=== PATIENT | female | born 1985 | race Caucasian/White ===

== ENCOUNTER 2020-10-21 08:54 | Inpatient (IN) ==
[2020-10-21] MEDS ORDERED: OXYTOCIN 30 UNITS/500 ML BAG IV PRN ×3 (09:25→20:36)
--- NOTE | 2020-10-21 09:46 | History & Physical Report ---
Date of Service October 21, 2020 Assessment & Plan (1) Post term over 40 weeks: (2) Supervision of elderly primigravida: (3) Obesity affecting : Admit, labs. will check cmp but does not seem still that gest htn dx met. pt says her bps can be labile so will get labs. plan pitocin now and then arom. pt agreeable and desires this. fhts categ 1. Admission and Anticipated Discharge Date Admission Date: October 21, 2020 History of Present Illness Chief Complaint: planned induction Primary Care Provider: Jennifer Little MD 35yo at 40+wks mariana presents to L&D for planned induction elective, although patient mentions some concern for her bps. Of note, pt does have some elevated bps noted in her record but never diagnosed with gestational hypertension. She desires induction today. Has nausea but thinks its due to nerves. No babcock, visual change or ruq pain. BP normal today and neg urine dip. PNC c/b 1. AMA 2. obesity, had efw at 36wks 65% aga PNL Rh pos, RI, GBS neg. OBH: G1 GYNH: nl paps no stds. Allergies Allergy/AdvReac Type Severity Reaction Status Date / Time No Known Allergies Allergy Verified 10/21/20 11:39 Home Medications Medication Instructions Recorded Confirmed Type prenat.vits,ayesha,xvo-pnub-kklea 1 tab PO DAILY 10/21/20 10/21/20 History [ Vitamin] Patient History Medical History Encounter for anatomic survey Surgical History H/O breast surgery Family History Father Diabetes Hypertension Mother Anemia Dyslipidemia Grandmother (Maternal) Acute leukemia Denies family history of Ovarian cancer Prostate cancer Myocardial infarction Breast cancer Colorectal cancer Social History Smoking Status: Never smoker Second Hand Exposure: No; Hx Alcohol Use: No Hx Substance Use: No Preferred Language: Nepalese Communication Ability: Effective Supervisor [employer] Vault Required: No Beliefs That Will Affect Care: None marital status: marital status details: Jarrell (35) [phone] Current Living Situation: Spouse Current Living Situation Comment: Lives with spouse, 2 dogs, 1 cat, spouse to change litter. current occupational status: employed current occupation: Direct production support engineer for [employer] Other Information That Helps Us Care for You: No Feels Safe at Home: Yes Safety Concerns: Feels Safe At This Time Childhood Exposure to Second-Hand Smoke: No Dental Care, Regularly: Yes Physical Activity Frequency: 3-4 Times per Week Seatbelt Use: always Sunscreen Use: Yes Assistive Devices: None Review of Systems no fever Physical Exam Constitutional: WD/WN, vitals as above Respiratory: normal respiratory effort, lungs clear to auscultation Cardiovascular: Rate/Rhythm: regular rate and regular rhythm Gastrointestinal (Abdomen): soft gravid nt EFW 7#13oz Musculoskeletal: no edema nontender calves Neurologic: grossly normal Psychiatric: A+Ox3, euthymic affect Genitourinary: OB Exam Abdomen: + vertex (by US) Manual OB Exam: + cervical dilation (3), + cervical effacement (75%) and + station high OB Exam Monitor Tracing: + external FHT monitor used (130 mod variability), + external uterine monitor used (irreg), + category I and + normal FHT variability Results & Data ([facility]) Vital Signs (Past 12 Hours) Vital Signs Pulse BP 10/21/20 09:15 80 138/81 Coding Level of Care Code None Diagnoses Post term over 40 weeks O48.0 Supervision of elderly primigravida O09.519 Obesity affecting O99.210
[2020-10-21 09:50] LABS: Hematocrit (blood only) 33.7 % (37-47); Hemoglobin 11.6 g/dL (12.0-16.0); Mean Corpuscular Hemoglobin 31.7 pg (25-34); Mean Corpuscular Hgb Conc 34.4 g/dL (32-36); Mean Corpuscular Volume 92.1 fL (80-100); Mean Platelet Volume 9.5 fL (7.4-10.4); Platelet Count 339 K/uL (130-400); RDW Standard Deviation 47.1 fL (36.4-46.3); Red Blood Count 3.66 M/uL (4.2-5.4); White Blood Count 11.69 K/uL (4.8-10.8)
[2020-10-21] MEDS: LACTATED RINGER'S 1,000 ML IV PRN ×3 (10:22→18:52)
[2020-10-21 10:28] LABS: Alanine Aminotransferase 16 U/L (12-78); Albumin Level 2.5 gm/dl (3.4-5.0); Aspartate Aminotransferase 12 U/L (15-37); BUN Creatinine Ratio 14.7 (10-20); Blood Urea Nitrogen 8 mg/dl (7-18); Calcium 8.8 mg/dl (8.5-10.1); Carbon Dioxide 21 mmol/L (21-32); Chloride 109 mmol/L (98-107); Est GFR (African American) 141.6; Est GFR (Non-African American) 122.2; Glucose 74 mg/dl (70-99); Potassium 3.8 mmol/L (3.5-5.1); Sodium 137 mmol/L (136-145)
[2020-10-21 10:29] LABS: Albumin Globulin Ratio 0.7 (0.9-2); Alkaline Phosphatase 156 U/L (45-117); Bilirubin,Total 0.9 mg/dl (0.2-1); Globulin 3.4 gm/dl (2.5-4.0); Total Protein 5.9 gm/dl (6.4-8.2)
--- NOTE | 2020-10-21 13:25 | Labor Progress Brief Note ---
Date of Service October 21, 2020 Subjective Reason For Note: Routine Evaluation pt not feeling ctx. pit at 9 Assessment & Plan (1) Post term over 40 weeks: (2) Supervision of elderly primigravida: (3) Obesity affecting : will see how arom helps labor pattern. fhts categ 1. discussed and reviewed mec stained fluid. Admission and Anticipated Discharge Date Admission Date: October 21, 2020 Physical Exam Constitutional: WD/WN, vitals as above Genitourinary: Manual OB Exam: + cervical dilation 4 cm, + cervical effacement 80%, + station -2 and + amniotic fluid (AROM) meconium (old??) OB Exam Monitor Tracing: + external FHT monitor used (140 mod variability), + external uterine monitor used (q3? not traced well), + category I and + normal FHT variability Results & Data ([facility]) Vital Signs (Past 12 Hours) Vital Signs Temp Pulse Resp BP 10/21/20 11:14 67 141/78 H 10/21/20 09:30 97.7 F 20 10/21/20 09:15 80 138/81 Coding Level of Care Code None Diagnoses Post term over 40 weeks O48.0 Supervision of elderly primigravida O09.519 Obesity affecting O99.210
[2020-10-21] MEDS ORDERED: fentaNYL citrate 100 MCG/2 ML VIAL ONE ×2 (14:13→16:47)
[2020-10-21] MEDS ORDERED: BUPIVACAINE 0.25% 30 ML VIAL ONE ×2 (14:13→16:47)
[2020-10-21] MEDS ORDERED: ePHEDrine sulfate 50 MG/ML AMP ONE (14:13)
[2020-10-21] MEDS ORDERED: SODIUM CHLORIDE 0.9% INJ 10 ML VIAL ONE (14:13)
[2020-10-21] MEDS ORDERED: fentaNYL 2MCG/ML ROPIVACAINE 1.25MG/ML 100 ML BAG EPI ONE (14:14)
--- NOTE | 2020-10-21 14:17 | Anesthesiology Consultation ---
Date of Service October 21, 2020 Assessment & Plan (1) Encounter for pre-operative examination: Chart Review Chart Review: Acceptable Risk for Labor Epidural Consults Requested none ASA ASA2 Proposed Anesthesia Anesthesia Type: Labor Epidural Risk / Benefits Reviewed With: PT / POA / Parent / Guardian, Accepts Plan and Informed Consent Obtained History Height/Weight Height: 5 ft 5 in Weight: 104.326 kg Allergies Allergy/AdvReac Type Severity Reaction Status Date / Time No Known Allergies Allergy Verified 10/21/20 11:39 Medications Home Medications Medication Instructions Recorded Confirmed Last Taken prenat.vits,ayesha,ore-jnse-wfcta 1 tab PO DAILY 10/21/20 10/21/20 10/14/20 21:00 [ Vitamin] Active Medications Generic Name Dose Route Start Last Admin Trade Name Freq PRN Reason Stop Dose Admin Lactated Ringer's 1,000 mls @ 125 mls/hr 10/21/20 09:25 10/21/20 10:22 Lr IV 10/23/20 09:24 125 mls/hr .Q8H PRN Administration L&D Protocol Protocol Oxytocin 30 units in 500 mls @ 11 mls/hr 10/21/20 09:27 10/21/20 14:04 Pitocin IV 10/23/20 09:26 0.66 units/hr .Q24H PRN 11 mls/hr Labor Induction/Augmentation Titration Protocol 0.66 UNITS/HR Past Medical History Medical History Encounter for anatomic survey Exercise / Class Metabolic Activity II 4-5 Yardwork/Stairs/Walk up hill Past Family History Family History Father Diabetes Hypertension Mother Anemia Dyslipidemia Grandmother (Maternal) Acute leukemia Denies family history of Ovarian cancer Prostate cancer Myocardial infarction Breast cancer Colorectal cancer Past Surgical History Surgical History H/O breast surgery Past Anesthesia History No Hx of Anesthesia Complications and No Family Hx of Anesthesia Complications History of PONV No Hx of PONV and No Hx of Motion Sickness Social History Smoking Status: Never smoker Hx Alcohol Use: No Hx Substance Use: No substance use type: does not use Physical Exam Vital Signs Last Vital Signs Temp 98.8 F 10/21/20 13:25 Pulse 69 10/21/20 13:25 Resp 20 10/21/20 13:25 BP 137/77 10/21/20 13:25 ENMT Mouth: no dentition abnormality Thyromental Distance: > or= 3.5 Finger Breadths Mallampati Class: II Neck normal visual inspection Respiratory normal respiratory effort Auscultation: lungs clear to auscultation bilaterally Cardiovascular Rate/Rhythm: regular rate and regular rhythm Testing Laboratory Results 10/21/20 09:31 10/21/20 09:35
[2020-10-21] MEDS ORDERED: NALOXONE HCL 1 MG in SODIUM CHLORIDE 0.9% 1000ML 1,000 ML IV PRN (14:18)
[2020-10-21] MEDS ORDERED: diphenhydrAMINE 50 MG/ML VIAL IV PRN (14:18)
[2020-10-21] MEDS ORDERED: ePHEDrine sulfate 50 MG/ML AMP IV PRN (14:18)
[2020-10-21] MEDS ORDERED: ONDANSETRON INJ 2 MG/ML 2 ML VIAL IV PRN (14:18)
[2020-10-21] MEDS ORDERED: NALOXONE HCL 0.4 MG/1 ML VIAL/CARP IV PRN (14:18)
[2020-10-21] MEDS: fentaNYL 2MCG/ML ROPIVACAINE 1.25MG/ML 100 ML BAG EPI PRN ×2 (14:44→16:26)
[2020-10-21] MEDS ORDERED: NURSING L&D Epidural Breakthrough Pain Update ONE (16:37)
--- NOTE | 2020-10-21 18:40 | Labor Progress Brief Note ---
Date of Service October 21, 2020 Subjective Reason For Note: Routine Evaluation pt pushing effectively Assessment & Plan (1) Post term over 40 weeks: (2) Obesity affecting : (3) Supervision of elderly primigravida: cont 2nd stage. fhts categ 1. Admission and Anticipated Discharge Date Admission Date: October 21, 2020 Physical Exam Constitutional: WD/WN, vitals as above Genitourinary: Manual OB Exam: + cervical dilation 10 cm, + cervical effacement 100% and + station + 2 OB Exam Monitor Tracing: + external FHT monitor used (130 mod variability), + external uterine monitor used (q2-3), + category I and + normal FHT variability Results & Data ([facility]) Vital Signs (Past 12 Hours) Vital Signs Temp Pulse Resp BP Pulse Ox 10/21/20 18:34 93 H 99 10/21/20 18:33 77 168/83 H 10/21/20 18:29 84 97 10/21/20 18:24 89 99 10/21/20 18:20 84 165/84 H 10/21/20 18:19 81 99 10/21/20 18:14 95 H 99 10/21/20 18:09 95 H 98 10/21/20 18:04 90 142/90 H 99 10/21/20 17:59 83 100 10/21/20 17:54 84 97 10/21/20 17:49 82 145/73 H 97 10/21/20 17:44 83 99 10/21/20 17:39 76 97 10/21/20 17:34 82 99 10/21/20 17:29 81 99 10/21/20 17:28 78 177/78 H 10/21/20 17:24 87 97 10/21/20 17:23 73 169/117 H 10/21/20 17:19 76 97 10/21/20 17:17 78 140/76 10/21/20 17:14 89 97 10/21/20 17:12 83 146/76 H 10/21/20 17:09 88 97 10/21/20 17:05 76 154/69 H 10/21/20 17:04 84 98 10/21/20 16:59 81 98 10/21/20 16:58 86 92 10/21/20 16:54 86 97 10/21/20 16:52 85 167/86 H 10/21/20 16:49 79 98 10/21/20 16:44 81 98 10/21/20 16:40 81 145/68 H 10/21/20 16:39 83 98 10/21/20 16:34 82 98 10/21/20 16:31 98.6 F 20 10/21/20 16:29 80 98 10/21/20 16:26 75 146/70 H 10/21/20 16:24 78 97 10/21/20 16:19 73 97 10/21/20 16:14 77 99 10/21/20 16:10 74 143/67 H 10/21/20 16:09 80 98 10/21/20 16:04 79 98 10/21/20 15:59 82 97 10/21/20 15:54 75 98 10/21/20 15:52 77 136/75 10/21/20 15:49 79 98 10/21/20 15:47 77 133/76 10/21/20 15:44 72 96 10/21/20 15:43 69 130/77 10/21/20 15:39 74 98 10/21/20 15:38 71 135/67 10/21/20 15:34 76 134/78 98 10/21/20 15:29 72 99 10/21/20 15:28 81 141/72 H 10/21/20 15:24 71 98 10/21/20 15:22 76 145/76 H 10/21/20 15:19 69 98 10/21/20 15:17 66 142/69 H 10/21/20 15:14 75 98 10/21/20 15:12 68 141/70 H 10/21/20 15:09 69 139/68 99 10/21/20 15:04 67 98 10/21/20 15:03 71 138/66 10/21/20 14:59 73 99 10/21/20 14:58 71 135/65 10/21/20 14:54 75 99 10/21/20 14:53 98.8 F 70 20 135/63 10/21/20 14:49 73 98 10/21/20 14:46 73 131/63 10/21/20 14:44 74 131/57 L 98 10/21/20 14:42 75 131/56 L 10/21/20 14:41 73 141/63 H 10/21/20 14:39 78 100 10/21/20 14:34 80 99 10/21/20 14:29 89 99 10/21/20 14:24 86 99 10/21/20 13:25 98.8 F 69 20 137/77 10/21/20 11:14 67 141/78 H 10/21/20 09:30 97.7 F 20 10/21/20 09:15 80 138/81 Coding Level of Care Code None Diagnoses Post term over 40 weeks O48.0 Obesity affecting O99.210 Supervision of elderly primigravida O09.519
[2020-10-21] MEDS ORDERED: miSOPROStoL 200 MCG TAB ONE (20:19)
[2020-10-21] MEDS ORDERED: LIDOCAINE HCL 1% 20 ML VIAL ONE (20:23)
[2020-10-21] MEDS ORDERED: oxyCODONE/ACETAMINOPHEN 5mg/325mg TAB PO PRN (20:36)
--- NOTE | 2020-10-21 20:40 | Delivery Summary ---
Vaginal Delivery Summary Date of Service October 21, 2020 Vaginal Delivery Summary and 2nd Degree LAC The patient dilated to complete and pushed to deliver a viable female infant Apgars 8 and 9 via over 2nd degree perineal laceration. Mouth and nose bulb suctioned at perineum. Loose nuchal x 1 reduced. Shoulders and body delivered with ease. Infant was vigorous and crying at . Cord clamped and infant to maternal abdomen where the cord was then doubly clamped and cut. Laceration repaired in usual fashion with 3-0 vicryl and additional bleeding site of laceration of left labia repaired with 3-0 vicryl after 1% local lidocaine anesthesia. Hemostasis adequate. Placenta delivered spontaneously and intact, three-vessel cord. Notable for calcifications. Hemostasis not achieved with dilute pitocin and uterine massage and drainage of the bladder for approximately 100 cc under sterile conditions, therefore cytotec 800mcg placed rectally. With further massage hemostasis became more adequate. Cervix and sulci intact. EBL 600 cc. Mother and baby stable recovery. [facility] Vaginal Delivery Charge Vaginal Delivery Codes: 48463 global code for the antepartum, delivery, and post- Delivery Type Details: and 2nd Degree LAC
[2020-10-21] MEDS ORDERED: OXYTOCIN 20 UNITS in LACTATED RINGER'S 1,000 ML IV SCH (20:45)
[2020-10-21] MEDS ORDERED: BENZOCAINE 20% AER SPR 82.5 GM CAN EXT PRN (20:50)
[2020-10-21] MEDS ORDERED: DIPHTHERIA/TETANUS/PERTUSSIS 0.5 ML SYR/VIAL IM ONE (20:50)
[2020-10-21] MEDS ORDERED: miSOPROStoL 200 MCG TAB PR ONE (20:50)
[2020-10-21] MEDS ORDERED: HYDROCORTISONE ACETATE 25 MG SUPP PR PRN (20:50)
[2020-10-21] MEDS ORDERED: SUPERCREAM 0.870% 15 GM JAR EXT PRN (20:50)
[2020-10-21] MEDS: DOCUSATE SODIUM 100 MG CAP PO SCH (21:58)
[2020-10-21] MEDS: ACETAMINOPHEN 325 MG TAB PO PRN (23:06)
[2020-10-21] MEDS: IBUPROFEN 600 MG TAB PO PRN (23:06)
--- NOTE | 2020-10-22 05:57 | Anesthesia Procedure Note ---
Date of Service October 22, 2020 Anesthesia Post Epidural Note Vital Signs Vital Signs: Temp Pulse Resp BP Pulse Ox 98.2 F 81 18 151/64 H 93 10/21/20 20:30 10/21/20 22:31 10/21/20 22:30 10/21/20 22:31 10/21/20 20:31 Notes Mental Status: alert / awake / arousable and participated in evaluation Nausea / Vomiting: adequately controlled Pain: adequately controlled Airway Patency, RR, SpO2: stable & adequate BP & HR: stable & adequate Hydration State: stable & adequate Neuraxial Anesthesia: was administered and sensory block is resolving Anesthetic Complications: no major complications apparent and Pt Satisfied with anesthetic care Epidural: Removed without complications and With tip intact
[2020-10-22 06:40] LABS: Hematocrit (blood only) 25.9 % (37-47); Hemoglobin 9.1 g/dL (12.0-16.0)
--- NOTE | 2020-10-22 07:23 | Obstetrical Progress Note ---
Date of Service October 22, 2020 Assessment & Plan (1) examination following vaginal delivery: doing well. given distance from home and new mom nursing enc to stay until tomorrow and agreeable. reg diet, enc ambulation. hgb noted, pt aware will need to take fe as outpt. will need to watch bps as well. Day #:: 1 Subjective Ambulation: ambulating normally Voiding: no voiding problems Diet Tolerance:: regular diet Lochia:: Small Feeding Type:: breast feeding denies pain issues. going ok. Physical Exam Constitutional WD/WN, vitals as above Respiratory normal respiratory effort, lungs clear to auscultation Cardiovascular Rate/Rhythm: regular rate and regular rhythm Gastrointestinal (Abdomen) Inspection/Auscultation: abdomen normal to inspection Percussion/Palpation: abdomen soft; abdomen nontender Fundus firm 2cm down Musculoskeletal nt calves no edema Neurologic grossly normal Psychiatric A+Ox3, euthymic affect Results & Data ([facility]) Vital Signs (Past 12 Hours) Vital Signs Temp Pulse Pulse Resp BP BP Pulse Ox 10/22/20 04:00 98.1 F 80 18 146/80 H 10/21/20 22:31 81 151/64 H 10/21/20 22:30 18 10/21/20 22:16 88 147/70 H 10/21/20 22:01 82 140/63 10/21/20 22:00 18 10/21/20 21:46 85 150/67 H 10/21/20 21:32 98 H 161/70 H 10/21/20 21:30 18 10/21/20 21:16 93 H 141/63 H 10/21/20 21:15 18 10/21/20 21:04 106 H 145/81 H 10/21/20 21:00 18 10/21/20 20:46 95 H 143/63 H 10/21/20 20:45 20 10/21/20 20:31 119 H 166/71 H 93 10/21/20 20:30 98.2 F 18 10/21/20 20:28 89 161/72 H 10/21/20 20:26 101 H 98 10/21/20 20:23 88 150/70 H 10/21/20 20:21 94 H 99 10/21/20 20:17 110 H 145/59 H 10/21/20 20:16 98 H 100 10/21/20 20:13 94 H 161/72 H 10/21/20 20:11 93 H 95 10/21/20 20:07 101 H 175/80 H 10/21/20 20:04 83 88 L 10/21/20 20:02 83 159/73 H 10/21/20 19:59 120 H 99 10/21/20 19:58 98.2 F 20 10/21/20 19:54 93 H 97 10/21/20 19:49 100 H 182/83 H 96 10/21/20 19:45 20 10/21/20 19:44 98 H 97 10/21/20 19:42 105 H 91 10/21/20 19:39 84 97 10/21/20 19:35 91 H 179/83 H 10/21/20 19:34 91 H 96 10/21/20 19:30 20 10/21/20 19:29 91 H 97 10/21/20 19:24 87 96
[2020-10-22] MEDS: IBUPROFEN 600 MG TAB PO PRN ×3 (09:02→23:34)
[2020-10-22] MEDS: PRENATAL VITAMIN 1 TAB PO SCH (09:02)
[2020-10-22] MEDS: DOCUSATE SODIUM 100 MG CAP PO SCH ×2 (09:02→21:25)
[2020-10-22] MEDS: ACETAMINOPHEN 325 MG TAB PO PRN ×2 (17:18→23:34)
[2020-10-23] MEDS: ACETAMINOPHEN 325 MG TAB PO PRN (07:35)
[2020-10-23] MEDS: IBUPROFEN 600 MG TAB PO PRN (07:35)
[2020-10-23] MEDS: PRENATAL VITAMIN 1 TAB PO SCH (07:35)
[2020-10-23] MEDS: DOCUSATE SODIUM 100 MG CAP PO SCH (07:35)
--- NOTE | 2020-10-23 07:36 | Obstetrical Progress Note ---
Date of Service October 23, 2020 Assessment & Plan (1) examination following vaginal delivery: Doing well, meeting all pp milestones. Plan for d/c home today w/ BP check in 1 wk due to labile but non-severe BPs. Reviewed s/s pre-eclampsia to call for Day #:: 2 Subjective Ambulation: ambulating normally Voiding: no voiding problems Passing Gas:: Yes Diet Tolerance:: regular diet Lochia:: Small Feeding Type:: breast feeding Pain well managed with medication Review of Systems Denies fevers, chills, n/v, MOLINA, CP, SOB, RUQ/epigastric pain Physical Exam Constitutional WD/WN, vitals as above no acute distress Respiratory normal respiratory effort, lungs clear to auscultation Cardiovascular RRR, no murmur, no edema Gastrointestinal (Abdomen) Percussion/Palpation: abdomen soft; abdomen nontender fundus firm at umbilicus and NT Musculoskeletal BLE symmetric, nonerythematous, nontender Results & Data ([facility]) Vital Signs (Past 12 Hours) Vital Signs Temp Pulse Resp BP Pulse Ox 10/23/20 07:13 98.1 F 87 18 147/88 H 96 10/22/20 23:30 98.2 F 78 18 134/80 98 10/22/20 20:20 98.1 F 86 18 137/82
== END 2020-10-23 09:45 | disposition home or self-care (01) | DRG 807 ==
LOC: 4S1 08:54 → EDSTATUS 19:34 → 4S2 23:00

== ENCOUNTER 2021-11-04 07:41 | Inpatient (IN) ==
[2021-11-04] MEDS ORDERED: OXYTOCIN 30 UNITS/500 ML BAG IV PRN ×3 (08:50→21:05)
[2021-11-04 09:30] LABS: Hematocrit (blood only) 36.6 % (37-47); Hemoglobin 12.3 g/dL (12.0-16.0); Mean Corpuscular Hemoglobin 31.5 pg (25-34); Mean Corpuscular Hgb Conc 33.6 g/dL (32-36); Mean Corpuscular Volume 93.8 fL (80-100); Mean Platelet Volume 9.1 fL (7.4-10.4); Platelet Count 330 K/uL (130-400); RDW Standard Deviation 47.4 fL (36.4-46.3); White Blood Count 13.69 K/uL (4.8-10.8)
--- NOTE | 2021-11-04 09:35 | History & Physical Report ---
Date of Service November 04, 2021 Assessment & Plan (1) Encounter for induction of labor: Plan: 36 y/o at 40wks 5 days coming in for IOL. -Started patient on pitocin, LR at 125ml/hr -BP mildly elevated, vitals otherwise WNL. Continue to monitor -Continue to monitor heart tracings. -Anesthesia consult for possible pain management. (2) Elderly multigravida, currently : Admission and Anticipated Discharge Date Admission Date: November 04, 2021 History of Present Illness Chief Complaint: IOL Primary Care Provider: Cristal Roper PA-C 36 year old 40 weeks 5 days confirmed via US. Here for IOL. Complications with this include anemia, HTN. Patient attended OB appointments regularly. Patient taking medications aspirin 81mg, vitamin. Contractions: Denies Fluid or blood: Denies Movement: Present. Allergies Allergy/AdvReac Type Severity Reaction Status Date / Time No Known Allergies Allergy Verified 11/03/21 11:12 Home Medications Medication Instructions Recorded Confirmed Type prenat.vits,ayesha,skv-ncns-khxdn 1 tab PO DAILY 10/21/20 11/03/21 History aspirin 81 mg capsule 81 mg PO DAILY 05/27/21 11/03/21 History Patient History Medical History (Updated 11/04/21 @ 09:33 by Randall Ramachandran DO) Amenorrhea Elevated blood pressure affecting in third trimester, antepartum Encounter for anatomic survey Surgical History H/O breast surgery Family History Father Diabetes Hypertension Mother Anemia Dyslipidemia Grandmother (Maternal) Acute leukemia Denies family history of Ovarian cancer Prostate cancer Myocardial infarction Breast cancer Colorectal cancer Social History (Updated 05/27/21 @ 13:08 by Colette Anand RN) Smoking Status: Never smoker Second Hand Exposure: No; Hx Alcohol Use: No Hx Substance Use: No Preferred Language: Slovak Communication Ability: Effective Visual Impairment: No Limitations Hearing Ability: Normal Mechanical Engineering Manager Required: No Beliefs That Will Affect Care: None marital status: marital status details: Jarrell (37) [phone] Current Living Situation: Spouse Current Living Situation Comment: Lives with spouse, 2 dogs, 1 cat, spouse to change litter. current occupational status: employed current occupation: Direct operations support specialist for [employer] Other Information That Helps Us Care for You: No Feels Safe at Home: Yes Safety Concerns: Feels Safe At This Time Childhood Exposure to Second-Hand Smoke: No Dental Care, Regularly: Yes Physical Activity Frequency: 3-4 Times per Week Seatbelt Use: always Sunscreen Use: Yes Assistive Devices: None OB History female baby without complication at 40 weeks, born 8lbs 7.8oz delivered by Dr. Bell. Review of Systems Denies fever, chills, sweats Denies shortness of breath, difficulty breathing, chest pain, palpitations, chest pressure. Denies breast pain. Denies dysuria. Denies headache or changes in vision +Anxious Physical Exam Physical Exam: General: Alert, oriented. No acute distress. Cardiac: Regular rate and rhythm, no murmurs/rubs/gallops. Respiratory: Clear to auscultation bilaterally a/p, no wheezes/rales/rhonchi. No increased work of breathing. Symmetrical chest rise. No respiratory distress. Lower Extremities: No lower extremity edema or swelling. No deep calf pain. Carey's negative bilaterally Results & Data ([facility]) Vital Signs (Past 12 Hours) Vital Signs Temp Pulse Resp BP 11/04/21 08:33 37.0 C 20 11/04/21 07:54 71 159/75 H Laboratory Results - Blood type A+ - Antibody screen: Negative - Hgb: 12.3 - Hct: 36.6 - Wbc: 13.69 - Plt: 330 - Rubella Immune - VDRL/RPR: Negative - Gonorrhea: Negative - Chlamydia: Negative - HIV: Negative - HbSAg: Negative - GBS: Negative - Glucose tolerance x 2: 145, 115. Monitoring External Monitor heart rate: 120 Accel: Present Decel: not present Contractions: Sparse Resident Activity Tracking Resident Involvement: Resident Care Provided Care Provided: OB Delivery
[2021-11-04] MEDS: LACTATED RINGER'S 1,000 ML IV PRN ×2 (09:51→17:23)
[2021-11-04] MEDS ORDERED: fentaNYL citrate 100 MCG/2 ML VIAL ONE (18:33)
[2021-11-04] MEDS ORDERED: ePHEDrine sulfate 50 MG/ML AMP ONE (18:33)
[2021-11-04] MEDS ORDERED: SODIUM CHLORIDE 0.9% INJ 10 ML VIAL ONE (18:33)
[2021-11-04] MEDS ORDERED: BUPIVACAINE 0.25% 30 ML VIAL ONE (18:34)
[2021-11-04] MEDS ORDERED: fentaNYL 2MCG/ML ROPIVACAINE 1.25MG/ML 100 ML BAG EPI ONE (18:34)
[2021-11-04] MEDS ORDERED: NALOXONE HCL 1 MG in SODIUM CHLORIDE 0.9% 1000ML 1,000 ML IV PRN (18:52)
[2021-11-04] MEDS ORDERED: NALBUPHINE HCL INJ 10 MG/ML AMP IV PRN (18:52)
[2021-11-04] MEDS ORDERED: fentaNYL 2MCG/ML ROPIVACAINE 1.25MG/ML 100 ML BAG EPI PRN (18:52)
[2021-11-04] MEDS ORDERED: ePHEDrine sulfate 50 MG/ML AMP IV PRN (18:52)
[2021-11-04] MEDS ORDERED: ONDANSETRON INJ 2 MG/ML 2 ML VIAL IV PRN (18:52)
[2021-11-04] MEDS ORDERED: NALOXONE HCL 0.4 MG/1 ML VIAL/CARP IV PRN (18:52)
[2021-11-04] MEDS ORDERED: diphenhydrAMINE 50 MG/ML VIAL IV PRN (18:52)
--- NOTE | 2021-11-04 18:54 | Anesthesiology Consultation ---
Date of Service November 04, 2021 Assessment & Plan (1) Encounter for pre-operative examination: Chart Review Chart Review: Patient NOT seen in Pre Admission Testing and Acceptable Risk for Labor Epidural Consults Requested none History Height/Weight Height: 5 ft 5 in Weight: 100.698 kg Allergies Allergy/AdvReac Type Severity Reaction Status Date / Time No Known Allergies Allergy Verified 11/03/21 11:12 Medications Home Medications Medication Instructions Recorded Confirmed Last Taken prenat.vits,ayesha,vtp-esyh-pjreo 1 tab PO DAILY 11/04/21 11/04/21 11/03/21 08:00 Active Medications Generic Name Dose Route Start Last Admin Trade Name Freq PRN Reason Stop Dose Admin Lactated Ringer's 1,000 mls @ 125 mls/hr 11/04/21 08:50 11/04/21 18:28 Lr IV 11/06/21 08:49 999 mls/hr .Q8H PRN Infusion L&D Protocol Protocol Oxytocin 30 units in 500 mls @ 16 mls/hr 11/04/21 08:52 11/04/21 17:20 Pitocin IV 11/06/21 08:51 0.96 units/hr .Q24H PRN 16 mls/hr Labor Induction/Augmentation Titration Protocol 0.96 UNITS/HR Past Medical History Medical History Amenorrhea Elevated blood pressure affecting in third trimester, antepartum With first Encounter for anatomic survey Exercise / Class Metabolic Activity II 4-5 Yardwork/Stairs/Walk up hill Past Family History Family History Father Diabetes Hypertension Mother Anemia Dyslipidemia Grandmother (Maternal) Acute leukemia Denies family history of Ovarian cancer Prostate cancer Myocardial infarction Breast cancer Colorectal cancer Past Surgical History Surgical History H/O breast surgery Past Anesthesia History No Hx of Anesthesia Complications and No Family Hx of Anesthesia Complications History of PONV No Hx of PONV and No Hx of Motion Sickness Social History Smoking Status: Never smoker Hx Alcohol Use: No Hx Substance Use: No substance use type: does not use Physical Exam Vital Signs Last Vital Signs Temp 37.0 C 11/04/21 17:06 Pulse 72 05/11/22 19:12 Resp 20 11/04/21 17:06 BP 107/62 11/04/21 19:12 Pulse Ox 98 11/04/21 19:10 Testing Laboratory Results 11/04/21 09:02 Blood Type A Positive 11/04/21 09:02 Antibody Screen NEGATIVE 11/04/21 09:02
--- NOTE | 2021-11-04 20:56 | Delivery Summary ---
Vaginal Delivery Summary Date of Service November 04, 2021 Vaginal Delivery Summary Spontaneous vaginal delivery the patient was induced for postdates with her second baby she was given Pitocin eventually excepted epidural and then spontaneously ruptured on her own for clear fluid heart rate was category 1 she delivered after reaching full dilatation over 1 contraction delivering occiput anterior position loose nuchal cord was passed over the head fluid was clear gentle traction no excessive force used live vigorous female infant cord cut and clamped cord blood obtained placenta removed with gentle traction IV Pitocin started second-degree tear repaired with 3-0 Vicryl sponge and instrument counts correct estimated blood loss 250 mL
[2021-11-04] MEDS ORDERED: DIPHTHERIA/TETANUS/PERTUSSIS 0.5 ML SYR/VIAL IM ONE (21:05)
[2021-11-04] MEDS ORDERED: HYDROCORTISONE ACETATE 25 MG SUPP PR PRN (21:05)
[2021-11-04] MEDS ORDERED: BENZOCAINE 20% AER SPR 82.5 GM CAN EXT PRN (21:05)
[2021-11-04] MEDS ORDERED: oxyCODONE/ACETAMINOPHEN 5mg/325mg TAB PO PRN (21:05)
[2021-11-04] MEDS ORDERED: ACETAMINOPHEN 325 MG TAB PO PRN (21:05)
[2021-11-04] MEDS ORDERED: bisacodyL 10 MG SUPP PR PRN (21:05)
--- NOTE | 2021-11-04 23:29 | Anesthesia Procedure Note ---
Date of Service November 04, 2021 Anesthesia Post Epidural Note Vital Signs Vital Signs: Temp Pulse Resp BP Pulse Ox 36.8 C 88 18 130/61 99 11/04/21 19:35 11/04/21 23:00 11/04/21 23:00 11/04/21 23:00 11/04/21 20:50 Pain Intensity Bilateral Abdomen: Pain Intensity: 0 Notes Mental Status: alert / awake / arousable and participated in evaluation Patient Amnestic to Procedure: No Nausea / Vomiting: adequately controlled Pain: adequately controlled Airway Patency, RR, SpO2: stable & adequate BP & HR: stable & adequate Hydration State: stable & adequate Neuraxial Anesthesia: was administered and sensory block is resolving Anesthetic Complications: no major complications apparent and Pt Satisfied with anesthetic care Epidural: Removed without complications and With tip intact
[2021-11-05] MEDS: IBUPROFEN 600 MG TAB PO PRN ×2 (03:19→08:17)
[2021-11-05 06:56] LABS: Hematocrit (blood only) 28.9 % (37-47); Hemoglobin 9.9 g/dL (12.0-16.0); Mean Corpuscular Hemoglobin 32.4 pg (25-34); Mean Corpuscular Hgb Conc 34.3 g/dL (32-36); Mean Corpuscular Volume 94.4 fL (80-100); Platelet Count 295 K/uL (130-400); RDW Coefficient of Variation 13.6 % (11.5-14.5); RDW Standard Deviation 46.8 fL (36.4-46.3); Red Blood Count 3.06 M/uL (4.2-5.4); White Blood Count 15.78 K/uL (4.8-10.8)
--- NOTE | 2021-11-05 07:31 | Obstetrical Progress Note ---
Date of Service <Randall Ramachandran DO - Last Filed: 11/05/21 07:30> November 05, 2021 Assessment & Plan <Randall Ramachandran DO - Last Filed: 11/05/21 07:30> (1) Encounter for care and examination after delivery: 36 yo post day 1 from vaginal delivery, doing well. -Continue routine post care. -vital signs reviewed and WNL. (Tmax 37.1) -Blood type A+, GBS negative, Rubella Immune -Encourage ambulation, monitor and control pain with Motrin, tylenol PRN, resume regular diet, monitor lochia. -encourage breast feeding. -hemoglobin 9.9 -Discussed discharge with patient as she would like to go home today. Patient w ill follow up with Dr. Mcgovern in 6 weeks. <Haroon Mcgovern MD, FACOG - Last Filed: 11/05/21 07:35> (1) Encounter for care and examination after delivery: Subjective <Randall Ramachandran DO - Last Filed: 11/05/21 07:30> Ambulation: ambulating normally Voiding: no voiding problems Passing Gas:: Yes Diet Tolerance:: regular diet Lochia:: Small Feeding Type:: breast feeding Current Pain Level(1-10): 0 Review of Systems Denies fever, chills, sweats Denies shortness of breath, difficulty breathing, chest pain, palpitations, chest pressure. Denies breast pain. Denies dysuria. Denies headache or changes in vision Physical Exam <Randall Ramachandran DO - Last Filed: 11/05/21 07:30> General: Alert, oriented. No acute distress. Cardiac: Regular rate and rhythm, no murmurs/rubs/gallops. Respiratory: Clear to auscultation bilaterally a/p, no wheezes/rales/rhonchi. No increased work of breathing. Symmetrical chest rise. No respiratory distress. Abdomen: Soft, nontender, nondistended. Bowel sounds present. Uterus: Uterine fundus firm, palpable 1 cm below umbilicus. Lower Extremities: No lower extremity edema or swelling. No deep calf pain. Carey's negative bilaterally Results & Data ([facility]) <Randall Yadavosielbreanna, DO - Last Filed: 11/05/21 07:30> Vital Signs (Past 12 Hours) Vital Signs Temp Pulse Pulse Resp BP BP Pulse Ox 11/05/21 03:10 36.7 C 76 16 131/81 98 11/05/21 00:25 36.9 C 81 16 126/79 97 11/05/21 00:00 92 H 18 135/62 11/04/21 23:59 92 H 135/62 11/04/21 23:00 88 18 130/61 11/04/21 22:45 84 138/64 11/04/21 22:30 84 18 161/70 H 11/04/21 22:15 84 123/58 L 11/04/21 22:00 37.1 C 84 18 138/64 11/04/21 21:45 75 18 123/56 L 11/04/21 21:30 83 18 126/74 11/04/21 21:15 82 18 96/54 L 11/04/21 21:13 82 96/54 L 11/04/21 21:01 99 H 138/62 11/04/21 21:00 75 20 123/56 L 11/04/21 20:50 109 H 99 11/04/21 20:47 144 H 164/74 H 11/04/21 20:45 117 H 99 11/04/21 20:40 120 H 98 11/04/21 20:36 105 H 90 11/04/21 20:35 113 H 100 11/04/21 20:31 78 142/66 H 11/04/21 20:30 87 100 11/04/21 20:28 81 134/59 L 11/04/21 20:25 82 100 11/04/21 20:21 70 139/58 L 11/04/21 20:20 80 100 11/04/21 20:15 84 100 11/04/21 20:10 73 100 11/04/21 20:05 74 100 11/04/21 20:00 72 18 117/69 100 11/04/21 19:56 76 129/70 11/04/21 19:55 68 100 11/04/21 19:53 74 92 11/04/21 19:52 71 137/71 11/04/21 19:50 72 100 11/04/21 19:46 151/68 H 11/04/21 19:45 75 20 99 11/04/21 19:44 80 159/76 H 11/04/21 19:42 72 172/78 H 11/04/21 19:40 79 18 100 11/04/21 19:38 72 168/77 H 11/04/21 19:36 75 156/75 H 11/04/21 19:35 36.8 C 81 18 99 11/04/21 19:34 71 157/81 H 11/04/21 19:32 71 154/77 H 11/04/21 19:30 73 146/73 H 99 11/04/21 19:29 18 <Haroon Mcgovern MD, FACOG - Last Filed: 11/05/21 07:35> Co-Signing Physician Notes Resident Physician Supervision Note: I was present with Dr. Ramachandran during the history and exam. I discussed the case with the resident and agree with the findings and plan as documented in the note. Any exceptions or clarifications are listed here: [None] Documented By: Haroon Mcgovern MD, FACOG Resident Activity Tracking <Randall Ramachandran DO - Last Filed: 11/05/21 07:30> Resident Involvement: Resident Care Provided Care Provided: OB Delivery
[2021-11-05] MEDS ORDERED: PRENATAL VITAMIN 1 TAB PO SCH (08:00)
[2021-11-05] MEDS: DOCUSATE SODIUM 100 MG CAP PO SCH ×2 (08:17→09:12)
[2021-11-05] MEDS ORDERED: bisacodyL 5 MG TABEC PO SCH (20:00)
== END 2021-11-05 21:50 | disposition home or self-care (01) | DRG 807 ==
LOC: 4S1 07:41 → 4E2 11-05 00:38